=== PATIENT | male | born 1970 | race Caucasian/White ===

== ENCOUNTER 2017-03-31 07:59 | Day surgery (SDC) | payer BC ==
[2017-03-27 11:11] VITALS: BMI 30.5
[~2017-03-31 07:59] MED LIST: LACTATED RINGERS 1,000 ML IV SCH
[2017-03-31 08:58] VITALS: RESP 18; TEMP 98
[2017-03-31] MEDS ORDERED: PROPOFOL 10 MG/ML 20 ML VIAL IV ONE (09:49)
--- NOTE | 2017-03-31 10:36 | P.PCN ---
Date of Procedure: 03/31/17 Procedure(s) Performed: Procedures: 1. Esophagogastroduodenoscopy and biopsy. 2. Total colonoscopy. Preoperative diagnosis: Iron deficiency anemia. Postoperative diagnosis: 1. Small sliding hiatal hernia with low-grade distal esophagitis. 2. [id number] antral gastritis and mild duodenitis. 3. Multiple biopsies obtained from the duodenum, antrum and esophagus. 4. Colonoscopy to the terminal ileum reveals low-grade internal hemorrhoids but no other obvious pathology. Preparation HalfLytely prep. Sedation was provided by anesthesia. Brief clinical history: The patient is a 46-year-old male who is referred for this evaluation because of iron deficiency anemia. He denied any overt bleeding or any upper GI complaints or change in bowel habits or any family history of colon cancer. This would be his first EGD and colonoscopy. Procedure: With the patient on his left lateral decubitus position and after informed consent and adequate sedation, I passed the Olympus-GIF 160 video upper endoscope through the cricopharyngeus down the esophagus. There was mild corrugations in the esophagus and distally, the esophagus showed short superficial linear erosions terminating at the GE junction which was around 40- 41 cm from the incisors. There was a 1-2 cm sliding hiatal hernia but no strictures or Phan's esophagus. The endoscope was then passed into the stomach which was insufflated with air and inspected in detail including the retroflex view in the cardia. There was mild erythema and scattered erosions in the antrum but no ulcers or bleeding. Pyloric channel did not show any ulcers. Duodenal bulb, post bulbar area and descending duodenum showed minimal erythema. I obtained biopsies from the duodenum, antrum and esophagus then the endoscope was withdrawn and I proceeded to do colonoscopy. Perianal area did not show any fissures or fistulas. There were no masses felt on digital rectal examination and fresh blood was noted on the gloved examining finger. The Olympus CFQ 160L video colonoscope was then inserted in the rectum in the usual fashion and advanced to the cecum. I intubated the ileocecal valve and examined the terminal ileum. Terminal ileum and colon appeared healthy. There were no edema, erythema, friability, ulceration, exudation or spontaneous bleeding. No polyps or tumors were seen or any obvious diverticular disease. I retroflexed the endoscope in the rectum then the endoscope was withdrawn. Low-grade internal hemorrhoids were noted and those showed evidence of fresh bleeding at the beginning of the examination but were not bleeding at the conclusion of the examination. The patient tolerated the procedure well. Plan: The patient was reassured. Discussed dietary measures and local care for hemorrhoids. Will await biopsy results and make further recommendations based on his course and biopsy results. He will follow up with you as planned.
[2017-03-31 10:56] VITALS: BP 112/75; PULSE 84
== END 2017-03-31 11:15 | disposition home or self-care (01) ==
LOC: ORWHC2ENDO 07:59
DX: K29.70 Gastritis, unspecified, without bleeding (principal); K29.80 Duodenitis without bleeding; K20.9 Esophagitis, unspecified; K44.9 Diaphragmatic hernia without obstruction or gangrene; K64.8 Other hemorrhoids; D50.9 Iron deficiency anemia, unspecified; J45.909 Unspecified asthma, uncomplicated; Z79.899 Other long term (current) drug therapy
CPT/HCPCS: 88305; 88342; 45378; 43239; J2704

== ENCOUNTER 2024-06-09 08:45 | Day surgery (SDC) | payer BC ==
[2024-06-08 08:34] VITALS: BMI 30.5
[2024-06-09 09:08] VITALS: RESP 16; TEMP 98.2
[2024-06-09] MEDS: LACTATED RINGERS 1,000 ML IV SCH (09:15)
[2024-06-09] MEDS ORDERED: PROPOFOL 10 MG/ML 50 ML VIAL IV ONE (09:42)
--- NOTE | 2024-06-09 10:00 | P.PCN ---
Date of Procedure: 06/09/24 Procedure(s) Performed: BRIEF HISTORY: Patient is a 53-year-old pleasant white male scheduled for an elective colonoscopy as a part of screening for colon cancer. PROCEDURE PERFORMED: Colonoscopy. PREOPERATIVE DIAGNOSIS: Screening for colon cancer. IV sedation per Anesthesia. PROCEDURE: After informed consent was obtained, the patient, was brought into the endoscopy unit. IV sedation was administered by Anesthesia under continuous monitoring. Digital rectal examination was normal. Initially the Olympus CF-160 flexible video colonoscope was then inserted in the rectum, gradually advanced into the cecum without any difficulty. Careful examination was performed as the scope was gradually being withdrawn. Ileocecal valve and the appendiceal orifice were visualized and appeared normal. Prep was excellent. Mucosa of the cecum, ascending colon, transverse colon, descending colon, sigmoid colon, and rectum appeared normal. Retroflexion was performed in the rectum and grade 2 internal hemorrhoid were seen. The patient tolerated the procedure well. IMPRESSION: Normal-appearing colon from rectum to cecum with no evidence of colorectal neoplasia. Grade 2 internal hemorrhoids RECOMMENDATIONS: Findings of this examination were discussed with the patient as well as his family. He was advised to have repeat screening colonoscopy in 10 years..
[2024-06-09 10:27] VITALS: BP 118/78; PULSE 89
== END 2024-06-09 10:40 | disposition home or self-care (01) ==
LOC: ORWHC2ENDO 08:45
PROVIDERS: ATTEND Internal Medicine Gastroenterology
DX: Z12.11 Encounter for screening for malignant neoplasm of colon (principal); K64.1 Second degree hemorrhoids
CPT/HCPCS: 45378; J2704